=== PATIENT | female | born 1950 | race Hispanic/Latino ===

== ENCOUNTER → 2017-02-25 | Outpatient (CLI) | payer BC, MEDICARE ==
[~2017-02-25] MED LIST: AEC81 PO; LISI-613 PO; LORA1TAB3 PO; MELO-108 PO; NEBI20TA2 PO; ZOLP10TA6 PO
== END | disposition home or self-care (01) ==
LOC: RAH 09:19
PROVIDERS: ATTEND Internal Medicine
DX: I71.4 Abdominal aortic aneurysm, without rupture (principal)
CPT/HCPCS: 76775

== ENCOUNTER → 2017-07-11 | Outpatient (CLI) | payer BC, MEDICARE | END | disposition home or self-care (01) | LOC: RAH 09:38 | PROVIDERS: ATTEND Internal Medicine | DX: G31.9 Degenerative disease of nervous system, unspecified (principal); R41.3 Other amnesia | CPT/HCPCS: 70551 ==

== ENCOUNTER 2017-07-12 14:10 | Observation (INO) | payer BC, MEDICARE ==
[~2017-07-12] VITALS: Ht 154.9 cm; Wt 70.2 kg
[2017-07-12 14:45] VITALS: BP 140/55
[2017-07-12] MEDS: LOSARTAN 50 MG TABLET PO SCH (14:58)
[2017-07-12] MEDS ORDERED: AMLODIPINE BESYLATE 5 MG TAB PO SCH (14:58)
[2017-07-12] MEDS ORDERED: CLONIDINE HCL 0.1 MG TABLET PO PRN (15:00)
[2017-07-12 15:16] LABS: HEMATOCRIT 39.6 % (36-48); MEAN CORPUSCULAR HEMOGLOBIN 34.7 pg (27.0-33.0); MEAN CORPUSCULAR HGB CONC 34.8 g/dL (32.0-36.0); MEAN CORPUSCULAR VOLUME 99.5 fL (79-99); PLATELET COUNT (AUTO) 207 K/uL (130-400); RED BLOOD CELL COUNT(AUTO) 3.97 MIL/uL (4.00-5.50); RED CELL DISTRIBUTION WIDTH 13.4 % (11.0-15.5); WHITE BLOOD COUNT (AUTO) 5.4 K/uL (4.8-10.8)
[2017-07-12 15:40] LABS: ALBUMIN 3.9 g/dL (3.5-5.0); BILIRUBIN,TOTAL 0.2 mg/dL (0.2-1.0); POTASSIUM 3.9 mmol/L (3.5-5.1); THYROID STIMULATING HORMONE 1.25 uIU/mL (0.36-3.74); TOTAL PROTEIN, SERUM 7.7 g/dL (6.0-8.3)
[2017-07-12] MEDS ORDERED: LISI-613 PO (15:40)
[2017-07-12] MEDS ORDERED: MELO-108 PO (15:40)
[2017-07-12] MEDS ORDERED: NEBI20TA2 PO (15:40)
[2017-07-12] MEDS ORDERED: ZOLP10TA6 PO (15:40)
[2017-07-12] MEDS ORDERED: LORA1TAB3 PO (15:40)
[2017-07-12 16:00] VITALS: BP 141/59
[2017-07-12] MEDS: ACETAMINOPHEN 325 MG TAB PO PRN ×2 (17:02→22:09)
[2017-07-12 19:51] VITALS: BP 146/57
[2017-07-12] MEDS: ZOLPIDEM TARTRATE 5 MG TAB PO PRN (22:08)
[2017-07-12 23:28] VITALS: BP 153/69
[2017-07-13 04:08] VITALS: BP 143/72
[2017-07-13 07:00] VITALS: BP_SYST 123; BP_SYST 142; BP_DIAS 87; BP_DIAS 89
[2017-07-13] MEDS: LOSARTAN 50 MG TABLET PO SCH (10:44)
[2017-07-13] MEDS: ACETAMINOPHEN 325 MG TAB PO PRN ×2 (10:45→18:17)
[2017-07-13 11:00] VITALS: BP 149/44
[2017-07-13 17:45] VITALS: BP 191/77
[2017-07-13] MEDS: LORAZEPAM 0.5 MG TABLET PO PRN (18:22)
[2017-07-13] MEDS ORDERED: DIVALPROEX SODIUM 250 MG TABLET.DR PO SCH (18:30)
[2017-07-13 19:48] VITALS: BP 136/76
[2017-07-13] MEDS: ZOLPIDEM TARTRATE 5 MG TAB PO PRN (23:13)
[2017-07-13 23:44] VITALS: BP 129/55
[2017-07-14 04:03] VITALS: BP 150/69
[2017-07-14 07:00] VITALS: BP 137/71
[2017-07-14] MEDS ORDERED: DIVALPROEX SODIUM 250 MG TABLET.DR PO SCH (09:00)
[2017-07-14] MEDS: LOSARTAN 50 MG TABLET PO SCH (09:39)
[2017-07-14] MEDS ORDERED: AEC81 PO (09:46)
[2017-07-14 11:00] VITALS: BP_SYST 124; BP_SYST 125; BP_DIAS 60; BP_DIAS 66
[2017-07-14 16:00] VITALS: BP_SYST 148; BP_SYST 151; BP_DIAS 65; BP_DIAS 67
[2017-07-14] MEDS: ACETAMINOPHEN 325 MG TAB PO PRN (16:39)
[2017-07-14] MEDS: LORAZEPAM 0.5 MG TABLET PO PRN (16:41)
== END 2017-07-14 18:30 | disposition home or self-care (01) ==
LOC: EDH 14:10 → EDHIP 14:11 → 2DH 14:38
PROVIDERS: ADMIT Internal Medicine; ATTEND Internal Medicine
DX: I16.0 Hypertensive urgency (principal); I10 Essential (primary) hypertension; I99.8 Other disorder of circulatory system; Z86.73 Personal history of transient ischemic attack (TIA), and cerebral infarction without residual deficits; Z79.899 Other long term (current) drug therapy
CPT/HCPCS: 36415 ×2; 76770; 80053; 82088; 82382; 83835; 84439; 84443; 84481; 84585; 85027; 99285; G0378 ×52

== ENCOUNTER → 2019-02-26 | Outpatient (CLI) | payer BC, OTHER ==
[~2019-02-26] MED LIST changes: -LISI-613 PO; -MELO-108 PO; -NEBI20TA2 PO
== END | disposition home or self-care (01) ==
LOC: OIH 13:20
PROVIDERS: ATTEND Internal Medicine
DX: I10 Essential (primary) hypertension (principal); R06.02 Shortness of breath
CPT/HCPCS: 71046

== ENCOUNTER → 2021-07-19 | Outpatient (CLI) | payer MEDICARE | END | disposition home or self-care (01) | LOC: RAH 15:15 | PROVIDERS: ATTEND Internal Medicine | DX: R07.81 Pleurodynia (principal); W19.XXXA Unspecified fall, initial encounter; Y93.89 Activity, other specified; Y92.89 Other specified places as the place of occurrence of the external cause; Y99.8 Other external cause status | CPT/HCPCS: 71101 ==

== ENCOUNTER → 2021-09-26 | Outpatient (CLI) | payer MEDICARE ==
[2021-09-26 12:30] LABS: BASOPHILS % (AUTO) 0.6 % (0.0-5.0); EOSINOPHILS % (AUTO) 1.1 % (0.0-8.0); HEMATOCRIT 40.3 % (36-48); NEUTROPHILS % (AUTO) 38.1 % (40.0-77.0); PLATELET COUNT (AUTO) 206 K/uL (130-400); RED BLOOD CELL COUNT(AUTO) 4.03 MIL/uL (4.00-5.50); RED CELL DISTRIBUTION WIDTH 13.2 % (11.0-15.5); WHITE BLOOD COUNT (AUTO) 5.4 K/uL (4.8-10.8)
[2021-09-26 12:44] LABS: POTASSIUM 4.9 mmol/L (3.5-5.1); TOTAL PROTEIN, SERUM 7.9 g/dL (6.0-8.3)
== END | disposition home or self-care (01) ==
LOC: LAB 09:00
PROVIDERS: ATTEND Internal Medicine Cardiovascular Disease
DX: I10 Essential (primary) hypertension (principal)
CPT/HCPCS: 36415; 80053; 80061; 85025

== ENCOUNTER → 2021-10-26 | Outpatient (CLI) | payer MEDICARE ==
[~2021-10-26] MED LIST changes: +DiphenhydrAMINE HCL 50 MG/ML VIAL ONE; +IOHEXOL 350 MG/ML 100ML INFUS..BTL IV ONE
== END | disposition home or self-care (01) ==
LOC: RAH 08:41
PROVIDERS: ATTEND Internal Medicine Cardiovascular Disease
DX: I10 Essential (primary) hypertension (principal); Q27.1 Congenital renal artery stenosis
CPT/HCPCS: 74174; J1200; Q9967

== ENCOUNTER → 2022-06-15 | Outpatient (CLI) | payer MEDICARE ==
[~2022-06-15] MED LIST changes: -DiphenhydrAMINE HCL 50 MG/ML VIAL ONE; -IOHEXOL 350 MG/ML 100ML INFUS..BTL IV ONE
== END | disposition home or self-care (01) ==
LOC: RAH 12:26
PROVIDERS: ATTEND Physical Medicine & Rehabilitation
DX: M46.03 Spinal enthesopathy, cervicothoracic region (principal); M48.02 Spinal stenosis, cervical region; M50.33 Other cervical disc degeneration, cervicothoracic region
CPT/HCPCS: 72141

== ENCOUNTER → 2022-07-17 | Outpatient (CLI) | payer MEDICARE | END | disposition home or self-care (01) | LOC: SHCH 09:51 | PROVIDERS: ATTEND Internal Medicine Cardiovascular Disease | DX: I10 Essential (primary) hypertension (principal) | CPT/HCPCS: 93306 ==

== ENCOUNTER → 2022-08-10 | Outpatient (CLI) | payer OTHER | END | disposition home or self-care (01) | LOC: RAH 12:49 | PROVIDERS: ATTEND Internal Medicine Cardiovascular Disease | DX: Z13.6 Encounter for screening for cardiovascular disorders (principal) | CPT/HCPCS: 75571 ==

== ENCOUNTER 2022-08-25 13:44 | Emergency (ER) | payer MEDICARE, OTHER ==
[~2022-08-25] VITALS: Ht 154.9 cm; Wt 72.6 kg
[2022-08-25] MEDS ORDERED: FAMOTIDINE 20MG VIAL IV ONE (15:00)
[2022-08-25] MEDS ORDERED: KETOROLAC 30MG VIAL (30MG/ML) IVP ONE (15:00)
[2022-08-25] MEDS ORDERED: DIAZEPAM 5 MG/ML 2 ML SYG IVP ONE (15:00)
[2022-08-25] MEDS ORDERED: KETOROLAC 60 MG VIAL (30MG/ML) IM ONE (16:00)
[2022-08-25 17:34] VITALS: BP 166/90
== END 2022-08-25 17:47 | disposition home or self-care (01) ==
LOC: EDH 13:44
DX: S63.592A Other specified sprain of left wrist, initial encounter (principal); I10 Essential (primary) hypertension; Z79.82 Long term (current) use of aspirin; Z79.899 Other long term (current) drug therapy; Z90.710 Acquired absence of both cervix and uterus; Z98.890 Other specified postprocedural states; Z88.1 Allergy status to other antibiotic agents; Z88.2 Allergy status to sulfonamides; Z88.8 Allergy status to other drugs, medicaments and biological substances; Z91.040 Latex allergy status; W18.39XA Other fall on same level, initial encounter; Y93.01 Activity, walking, marching and hiking; Y92.89 Other specified places as the place of occurrence of the external cause; Y99.8 Other external cause status
CPT/HCPCS: 99285; 70450; 71045; 73100; 73562; 72170; 72125; 96372; J1885

== ENCOUNTER → 2023-11-26 | Outpatient (CLI) | payer MEDICARE ==
[~2023-11-26] MED LIST changes: +IOHEXOL 350 MG/ML 100ML INFUS..BTL IV ONE
--- NOTE | 2023-11-26 09:44 | HMCIMG ---
CT CARDIAC ANGIO W/CONT. 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 2-D and 3-D multiplanar reconstruction images were then performed. The injection had to be repeated once due to motion artifact on the first sequence, total contrast volume was 200 cc. FINDINGS: This dictation is for the noncardiac findings only. Cardiac and coronary artery findings are reported separately. Visualized portions of the lungs are clear. There is normal-appearing pulmonary interstitium. There is no hilar or mediastinal lymphadenopathy. Chest wall structures appear unremarkable. IMPRESSION: 1. Unremarkable noncardiac portions of CT cardiac angiography.
--- NOTE | 2023-11-28 09:25 | CARDIOLOGY ---
RAD REPORT: CORNARY CT ANGIO RADIOLOGY REPORT: CORONARY CT ANGIOGRAPHY DATE: Nov 28, 2023 QUALITY: Excellent CLINICAL HISTORY AND INDICATION: [ HTN ] TECHNIQUE: After obtaining a preliminary fly worker image, contrast imaging performed on an [employer] [id number] scanner. A dedicated, limited window, coronary imaging protocol was used, with single breath-hold, retrospective ECG gating, and automated arrhythmia rejection. 100 cc of low osmolar contrast agent: Omnipaque 350 was delivered via a 18-gauge IV catheter in the right antecubital fossa, using a power injector and followed by 60 cc of normal saline bolus as a chaser. Collimated images were reformatted at 0.5 mm intervals, and sent to an offline independent workstation for interpretation, using 3D anatomic reconstructions: Curved multiplanar reconstructions, maximum intensity projections, and multiplanar imaging. No metoprolol was administered prior to scanning due to low baseline heart rate. 0.8 mg SL nitroglycerin was given. CORONARY ARTERY DESCRIPTIONS: The coronary arteries arise in normal position. Left main coronary artery: Normal caliber vessel that bifurcates into the LAD and LCx. No stenosis. Left anterior descending coronary artery: Normal caliber vessel and gives rise to diagonal and septal branches. No stenosis. Left circumflex coronary artery: Normal caliber, nondominant and gives rise to three OM branches. No stenosis. Right coronary artery: Large, dominant vessel giving rise to the PL and PDA branches. No stenosis. CAD-RADs: 0, absence of CAD. Thoracic Aorta: Normal diameter. Chio Louis MD Cardiovascular Disease [facility] CHIO LOUIS MD Nov 28, 2023 09:25
== END | disposition home or self-care (01) ==
LOC: RAH 07:46
PROVIDERS: ATTEND Student in an Organized Health Care Education/Training Program
DX: R93.1 Abnormal findings on diagnostic imaging of heart and coronary circulation (principal); I25.10 Atherosclerotic heart disease of native coronary artery without angina pectoris
CPT/HCPCS: 75574; Q9967

== ENCOUNTER → 2024-02-24 | Outpatient (CLI) | payer MEDICARE ==
[~2024-02-24] MED LIST changes: -IOHEXOL 350 MG/ML 100ML INFUS..BTL IV ONE
--- NOTE | 2024-02-24 16:03 | HMCIMG ---
10/26/2021 HISTORY: Right lower abdominal pain COMPARISON: None TECHNIQUE: Multiple sequential axial images of the abdomen and pelvis were obtained from the dome of the diaphragm through symphysis pubis. Patient was not given contrast through intravenous route. Oral contrast was not given. FINDINGS: No pleural effusion is seen bilaterally. There is no evidence of parenchymal disease or pulmonary nodule of the visualized lower lungs. Degenerative changes of the thoracolumbar spine are present. The heart is not enlarged. The liver, spleen, adrenal glands and pancreas are unremarkable. There is no evidence of hydronephrosis bilaterally. No evidence of renal stone is seen. Fecal material is seen in the colon. There are normal size retroperitoneal and mesenteric lymph nodes. No ascites is seen. Appendix is dilated measuring 10 mm with minimal adjacent fat stranding may be related to acute appendicitis. Clinical correlation is recommended. Pelvic sidewalls are symmetric bilaterally. Bladder is well distended without wall thickening. IMPRESSION: 1. Appendix is dilated measuring 10 mm with minimal adjacent fat stranding may be related to acute appendicitis. Clinical correlation is recommended. CT was performed with one or more following dose reduction techniques: automated exposure control, adjustment of the mA and kv according to patient's size, or use of a iterative reconstruction technique.
== END | disposition home or self-care (01) ==
LOC: RAH 14:27
PROVIDERS: ATTEND Internal Medicine
DX: K31.89 Other diseases of stomach and duodenum (principal); K37 Unspecified appendicitis; M47.815 Spondylosis without myelopathy or radiculopathy, thoracolumbar region
CPT/HCPCS: 74176

== ENCOUNTER → 2024-08-28 | Outpatient (CLI) | payer MEDICARE ==
[~2024-08-28] MED LIST changes: +ALPR0.5T PO; +HYDR25 PO; +IBUP-2077 PO; -LORA1TAB3 PO; +LOSA-420 PO; +NITR0.4T50 SL
--- NOTE | 2024-08-28 17:49 | HMCIMG ---
EXAM: CT Head Without IV contrast. CLINICAL HISTORY: SYNCOPE EPISODE, S/P FALL AND HIT LT SIDE OF HEAD TECHNIQUE: Axial computed tomography images of the head/brain without intravenous contrast. COMPARISON: Study dated on 08/25/22 FINDINGS: BRAIN: Age-related cerebral and cerebellar atrophy noted. Bilateral deep periventricular and subcortical white matter hypodensities suggestive of chronic small vessel ischemic changes. No evidence of acute hemorrhage. No mass lesion. No CT evidence for acute territorial infarct. No midline shift or extra-axial collections. VENTRICLES: No hydrocephalus. ORBITS: The orbits are unremarkable. SINUSES AND MASTOIDS: The paranasal sinuses and mastoid air cells are clear. BONES: No fracture. SOFT TISSUES: Unremarkable. IMPRESSION: 1. No acute intracranial findings. /[place]
--- NOTE | 2024-08-28 17:56 | HMCIMG ---
EXAM: Non-contrast CT examination of the Face CLINICAL HISTORY: Syncope. Status post fall and hit left side of the right. TECHNIQUE: Thin collimated axial CT images of the face were obtained with sagittal and coronal reformatted images also submitted. CT scan done according to ALARA (As Low as Reasonably Achievable). CONTRAST USED: None. COMPARISON: None provided. FINDINGS: No acute facial fractures. The paranasal sinuses and mastoid air cells are clear. The globes, optic nerves, extraocular muscles and retro-orbital fat are grossly unremarkable. Reformatted imaging demonstrates intact roof and floor of the orbits. Included portions of the mandible are intact. Mild degenerative changes in the left temporomandibular joint. The included intracranial substances and airway are unremarkable. Moderate multilevel cervical spondylosis noted. IMPRESSION: No acute abnormality. No acute facial fractures. /[place]
--- NOTE | 2024-08-29 05:48 | EKG ---
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
== END | disposition home or self-care (01) ==
LOC: RAH 16:20
PROVIDERS: ATTEND Internal Medicine
DX: I67.82 Cerebral ischemia (principal); G31.9 Degenerative disease of nervous system, unspecified; M26.602 Left temporomandibular joint disorder, unspecified; M47.812 Spondylosis without myelopathy or radiculopathy, cervical region; G50.1 Atypical facial pain; R55 Syncope and collapse; W19.XXXA Unspecified fall, initial encounter; Y92.89 Other specified places as the place of occurrence of the external cause
CPT/HCPCS: 70450; 70486; 93005

== ENCOUNTER → 2024-11-13 | Outpatient (CLI) | payer MEDICARE ==
[~2024-11-13] MED LIST changes: +IOHEXOL 350 MG/ML 100ML INFUS..BTL IV ONE
--- NOTE | 2024-11-13 14:09 | HMCIMG ---
EXAM: CTA Abdomen with and without Intravenous Contrast. CLINICAL HISTORY: Atherosclerosis of aorta TECHNIQUE: Axial CTA images of the abdomen performed with and without intravenous contrast in the arterial phase with coronal and sagittal reformatted images generated and reviewed. 3-D reformatted images generated on an independent workstation and also reviewed. CONTRAST: was injected intravenously without incident. COMPARISON: Study dated 10/26/21. FINDINGS: VASCULATURE: Aorta: Mild atherosclerotic changes in the form of eccentric vessel wall calcification in the abdominal aorta. No acute finding. No abdominal aortic aneurysm. No dissection. Celiac trunk: No acute finding. No occlusion or significant stenosis. Superior mesenteric artery: No acute finding. No occlusion or significant stenosis. Inferior mesenteric artery: No acute finding. No occlusion or significant stenosis. Renal arteries: No acute finding. No occlusion or significant stenosis. Lower thorax: Dependent airway disease along bilateral lower lobes, presumed to represent basal atelectasis. ABDOMEN: Liver: Unremarkable. No mass. Gallbladder and bile ducts: No calcified stone. No ductal dilation. Pancreas: Unremarkable. No ductal dilation. Spleen: Unremarkable. Adrenals: No mass. Kidneys and ureters: No hydroureteronephrosis. Tiny cyst in the right kidney. The kidneys enhance symmetrically. No solid mass. Stomach and bowel: No obstruction. No bowel wall thickening. No CT evidence of acute diverticulitis. Peritoneum: No free fluid. No free air. Lymph nodes: No lymphadenopathy is evident. Bones: Degenerative changes in the visualized spine. No acute osseous abnormality. IMPRESSION: 1. No acute intraabdominal findings. 2. No abdominal aortic aneurysm or dissection. /[place]
== END | disposition home or self-care (01) ==
LOC: RAH 08:21
PROVIDERS: ATTEND Student in an Organized Health Care Education/Training Program
DX: N28.1 Cyst of kidney, acquired (principal); I70.0 Atherosclerosis of aorta; M47.816 Spondylosis without myelopathy or radiculopathy, lumbar region; R03.0 Elevated blood-pressure reading, without diagnosis of hypertension
CPT/HCPCS: 74175; Q9967 ×2